=== PATIENT | female | born 1965 | race Two or more races ===

== ENCOUNTER 2020-12-02 10:48 | Emergency (ER) | payer SELFPAY ==
[~2020-12-02] VITALS: Ht 162.6 cm; Wt 101.9 kg
[2020-12-02] MEDS ORDERED: IV NORMAL SALINE 1000ML BAG 1,000 ML IV SCH (13:15)
[2020-12-02] MEDS ORDERED: fentaNYL PF VIAL 100 MCG/2 ML VIAL IVP ONE (13:15)
--- NOTE | 2020-12-02 13:23 | PHYS DOC ---
Past Medical History Additional Past Medical Histor: renal colic Past Surgical History: Cholecystectomy, Smoking Status: Never Smoker Alcohol Use: None General Adult EDM: Chief Complaint: FLANK PAIN HPI: HPI: Patient is a 55 year old female who presents with right flank pain that has worsened over the last week. 2 years ago when she was in [place] [facility] she had to have a lithotripsy for kidney stones. She states that at times this pain is in the right flank and wraps around to her lower abdomen and she gets very nauseated when the pain hits. She states it has been more frequent and consistent and she rates her pain an 8 out of 10 at this time. She states she is taking naproxen and Tylenol at home but is not helping. She states that she establish a primary care and have some blood work done and then they were going to refer her to a urologist but they cannot get any answers or even blood work results back from this physician. She has a history of renal stones, cholecystectomy and a . Review of Systems: Review of Systems: Constitutional: Denies fever or chills. [] Eyes: Denies change in visual acuity. [] HENT: Denies nasal congestion or sore throat. [] Respiratory: Denies cough or shortness of breath. [] Cardiovascular: Denies chest pain or edema. [] GI: + abdominal pain, +nausea, denies vomiting, bloody stools or diarrhea. [] : Denies dysuria. [] Musculoskeletal: + Right flank back pain or denies joint pain. [] Integument: Denies rash. [] Neurologic: Denies headache, focal weakness or sensory changes. [] Endocrine: Denies polyuria or polydipsia. [] Lymphatic: Denies swollen glands. [] Psychiatric: Denies depression or anxiety. [] Heart Score: C/O Chest Pain: No Risk Factors: Risk Factors: DM, Current or recent (<one month) smoker, HTN, HLP, family history of CAD, obesity. Risk Scores: Score 0 - 3: 2.5% MACE over next 6 weeks - Discharge Home Score 4 - 6: 20.3% MACE over next 6 weeks - Admit for Clinical Observation Score 7 - 10: 72.7% MACE over next 6 weeks - Early Invasive Strategies Current Medications: Current Medications Medications (Trade) Dose Ordered Sig/Charlie Start Time Stop Time Status Last Admin Dose Admin Fentanyl Citrate (Fentanyl 2ml Vial) 25 mcg 1X ONCE 12/02/20 13:15 12/02/20 13:16 Sodium Chloride 1,000 ml @ 1,000 mls/hr Q1H 12/02/20 13:15 12/02/20 14:14 Allergies: Allergies: Allergies Coded Allergies Type Severity Reaction Last Updated Verified Penicillins Allergy Intermediate 12/02/20 Yes Physical Exam: PE: Constitutional: Well developed, well nourished, no acute distress, non-toxic appearance. [] HENT: Normocephalic, atraumatic, bilateral external ears normal, oropharynx moist, no oral exudates, nose normal. [] Eyes: PERRLA, EOMI, conjunctiva normal, no discharge. [] Neck: Normal range of motion, no tenderness, supple, no stridor. [] Cardiovascular:Heart rate regular rhythm, no murmur [] Lungs & Thorax: Bilateral breath sounds clear to auscultation [] Abdomen: Bowel sounds normal, soft, no tenderness, no masses, no pulsatile masses. [] Skin: Warm, dry, no erythema, no rash. [] Back: No tenderness, right CVA tenderness. [] Extremities: No tenderness, no cyanosis, no clubbing, ROM intact, no edema. [] Neurologic: Alert and oriented X 3, normal motor function, normal sensory function, no focal deficits noted. [] Psychologic: Affect normal, judgement normal, mood normal. [] Current Patient Data: Vital Signs: Vital Signs Date Time Temp Pulse Resp B/P (MAP) Pulse Ox O2 Delivery O2 Flow Rate FiO2 12/02/20 12:33 98.2 60 18 134/79 98 Room Air 98.2 EKG: EKG: [] Radiology/Procedures: Radiology/Procedures: [] Impression: [facility] [address] [place] [address] IMAGING REPORT Signed PATIENT: NATHAN CHAVEZ ACCOUNT: [id number] : 1965 LOCATION: ER AGE: 55 SEX: F EXAM STATUS: REG ER ORD. PHYSICIAN: KRYSTAL PLUNKETT APRN REASON: right flank pain PROCEDURE: CT ABDOMEN PELVIS WO CONTRAST EXAMINATION: CT abdomen and pelvis without IV contrast. INDICATION:55 years, Female, right flank pain. TECHNIQUE: Axial CT images of the abdomen and pelvis were obtained. Coronal and sagittal reformatted performed. COMPARISON: None. Exposure: One or more of the following individualized dose reduction techniques were utilized for this examination: 1. Automated exposure control 2. Adjustment of the mA and/or kV according to patient size 3. Use of iterative reconstruction technique. FINDINGS: LOWER CHEST: Unremarkable ABDOMEN/PELVIS: Within the limitation of noncontrast exam, There is a 1.8 cm right renal pelvic calculus causing mild to moderate calyceal dilatation. Additional, few nonobstructing calculi in the lower pole right kidney with the largest measures 0.8 cm. Thickened urothelia of the right renal pelvis and proximal ureter with adjacent fat stranding. Prominent right ureter without obstructing calculus. Multifocal cortical scarring in the right kidney. Left kidney and urinary bladder are unremarkable. Liver, spleen, pancreas, adrenals and biliary ducts are unremarkable. Cholecystectomy. Surgical clips adjacent to the posterior right hepatic lobe. No bowel obstruction. Few colonic diverticulosis without diverticulitis. Normal appendix. Normal caliber abdominal aorta. Retroaortic left renal vein. No lymphadenopathy in the abdomen or pelvis by size criteria. No pneumoperitoneum or ascites. Unremarkable uterus. No suspicious pelvic masses. 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 No suspicious osseous lesion or acute process. Mild degenerative changes in the spine. IMPRESSION: 1. 1.8 cm right renal pelvic calculus causing mild to moderate calyceal dilatation. Additional few subcentimeter nonobstructing right nephrolithiasis. 2. Thickened urothelia of the right renal pelvis and proximal ureter with adjacent fat stranding. Correlate for urinary tract infection. 3. Prominent proximal and mid right ureter without obstructing calculus, findings may relate to reactive luminal narrowing. Electronically signed by: Francisca Pacheco MD (12/02/2020 2:10 PM) [facility] DICTATED and SIGNED BY: FRANCISCA PACHECO MD DATE: 12/02/20 [id number] Course & Med Decision Making: Course & Med Decision Making Pertinent Labs and Imaging studies reviewed. (See chart for details) See HPI. Alert and oriented x4. Ambulatory steady gait. Speaks in full clear sentences. Macedonian-speaking but daughter is in the room interpreting. Skin pink warm and dry. Cap refill less than 2 seconds. Afebrile. Abdomen is soft and nontender. Right CVA tenderness. Denies chest pain, cough, fever, problems urinating, pain with urination, blood in her urine, vomiting, diarrhea, headache, dizziness, shortness of breath. See the CT results. Patient is seeing urology. She is given ciprofloxacin for infection. She is given IV fluids and pain medication. I called [facility] and they stated that they have no beds in other facility so they declined the patient. I called [facility] and they had no patients and declined the patient. I then called [facility] and they declined the patient because they have no beds. I then called and they accepted the patient. Patient accepted at by Dr. Gutiérrez [] Claire Disclaimer: Claire Disclaimer: This electronic medical record was generated, in whole or in part, using a voice recognition dictation system. Departure Departure Impression: Primary Impression: Kidney stone on right side Additional Impression: Urinary tract infection Qualified Codes: N39.0 - Urinary tract infection, site not specified; R31.9 - Hematuria, unspecified Disposition: 02 SHORT TERM HOSPITAL ([facility]) Condition: STABLE Referrals: JACKELINE GARLAND MD (PCP) KRYSTAL PLUNKETT ADJUSTMENT SUPERVISOR Dec 02, 2020 13:23
[2020-12-02 13:52] LABS: BASO # 0.1 x10^3/uL (0.0-0.2); BASO % 1 % (0-3); EOS # 0.2 x10^3/uL (0.0-0.7); EOS % 2 % (0-3); HEMATOCRIT 39.6 % (36.0-47.0); HEMOGLOBIN 13.4 g/dL (12.0-15.5); LYMPH # 2.2 x10^3/uL (1.0-4.8); LYMPH % 26 % (24-48); MEAN CORPUSCULAR HEMOGLOBIN 29 pg (25-35); MEAN CORPUSCULAR HGB CONC 34 g/dL (31-37); MEAN CORPUSCULAR VOLUME 85 fL (79-100); MONO # 0.5 x10^3/uL (0.0-1.1); MONO % 6 % (0-9); NEUT # 5.7 x10^3/uL (1.8-7.7); NEUT % 65 % (31-73); PLATELET COUNT 344 x10^3/uL (140-400); RED BLOOD COUNT 4.66 x10^6/uL (3.50-5.40); RED CELL DISTRIBUTION WIDTH 13.9 % (11.5-14.5); WHITE BLOOD COUNT 8.7 x10^3/uL (4.0-11.0)
[2020-12-02 13:57] LABS: BILIRUBIN,URINE NEGATIVE (NEG); CLARITY,URINE CLEAR; COLOR,URINE YELLOW; NITRITE,URINE POSITIVE (NEG); PROTEIN,URINE NEGATIVE (NEG-TRACE); UROBILINOGEN,URINE 0.2 mg/dL (0.2 mg/dL)
[2020-12-02 13:59] LABS: CALCIUM 9.8 mg/dL (8.5-10.1); CREATININE 0.8 mg/dL (0.6-1.0); GFR 74.7; POTASSIUM 4.5 mmol/L (3.5-5.1)
[2020-12-02 14:05] LABS: ALBUMIN 3.8 g/dL (3.4-5.0); ALBUMIN/GLOBULIN RATIO 0.9 (1.0-1.7); TOTAL BILIRUBIN 0.3 mg/dL (0.2-1.0)
[2020-12-02 14:08] LABS: BACTERIA,URINE MANY /HPF (0-FEW); WBC,URINE >40 /HPF (0-4)
--- NOTE | 2020-12-02 14:12 | RAD ---
EXAMINATION: CT abdomen and pelvis without IV contrast. INDICATION:55 years, Female, right flank pain. TECHNIQUE: Axial CT images of the abdomen and pelvis were obtained. Coronal and sagittal reformatted performed. COMPARISON: None. Exposure: One or more of the following individualized dose reduction techniques were utilized for thi s examination: 1. Automated exposure control 2. Adjustment of the mA and/or kV according to patient size 3. Use of iterative reconstruction technique. FINDINGS: LOWER CHEST: Unremarkable ABDOMEN/PELVIS: Within the limitation of noncontrast exam, There is a 1.8 cm right renal pelvic calculus causing mild to moderate calyceal dilatation. Additiona l, few nonobstructing calculi in the lower pole right kidney with the largest measures 0.8 cm. Thicke john urothelia of the right renal pelvis and proximal ureter with adjacent fat stranding. Prominent ri ght ureter without obstructing calculus. Multifocal cortical scarring in the right kidney. Left kidne y and urinary bladder are unremarkable. Liver, spleen, pancreas, adrenals and biliary ducts are unremarkable. Cholecystectomy. Surgical clips adjacent to the posterior right hepatic lobe. No bowel obstruction. Few colonic diverticulosis witho ut diverticulitis. Normal appendix. Normal caliber abdominal aorta. Retroaortic left renal vein. No l ymphadenopathy in the abdomen or pelvis by size criteria. No pneumoperitoneum or ascites. Unremarkabl e uterus. No suspicious pelvic masses. 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 No suspicious osseous lesion or acute process. Mild de generative changes in the spine. IMPRESSION: 1. 1.8 cm right renal pelvic calculus causing mild to moderate calyceal dilatation. Additional few s ubcentimeter nonobstructing right nephrolithiasis. 2. Thickened urothelia of the right renal pelvis and proximal ureter with adjacent fat stranding. Co rrelate for urinary tract infection. 3. Prominent proximal and mid right ureter without obstructing calculus, findings may relate to reac tive luminal narrowing. Electronically signed by: Christopher Pacheco MD (12/02/2020 2:10 PM) [facility]
[2020-12-02] MEDS ORDERED: CIPROFLOXACIN 400MG PREMIX 200 ML IV ONE (14:30)
[2020-12-02] MEDS ORDERED: KETOROLAC 30 MG/ML VIAL. IVP ONE (15:30)
[2020-12-02 17:54] VITALS: BP 154/77
--- NOTE | 2020-12-02 18:19 | EKG ---
[facility] [address] [place] [address] Test Date: 2020-12-02 Test Time: 17:58:05 Pat Name: NATHAN CHAVEZ Department: Room: Gender: F Financial Services Technician: : 1965 Requested By: KRYSTAL PLUNKETT Order Number: [id number] Reading MD: Measurements Intervals [place] Rate: 56 P: 27 MO: 148 QRS: -2 QRSD: 80 T: 15 QT: 436 QTc: 423 Interpretive Statements No previous ECG available for comparison
== END 2020-12-02 18:25 | disposition short-term general hospital (02) ==
LOC: ER 10:48
DX: N20.0 Calculus of kidney (principal); Z20.822 Contact with and (suspected) exposure to COVID-19; N39.0 Urinary tract infection, site not specified; R31.9 Hematuria, unspecified; Z90.49 Acquired absence of other specified parts of digestive tract
CPT/HCPCS: 36415; 74176; 80053; 81001; 83690; 84484; 85025; 87086; 87426; 93005; 96361; 96365; 96375; 99285; J0744; J3010; J7030; U0003; U0005